=== PATIENT | male | born 1950 | race Caucasian/White ===

== ENCOUNTER 2017-09-25 15:53 | Emergency (ER) | payer MEDICARE ==
[~2017-09-25] VITALS: Ht 180.3 cm; Wt 105.0 kg
[~2017-09-25 15:53] MED LIST: CEPH500C5 PO; CYCL-1 PO; HYDR-569 PO
[2017-09-25 16:46] LABS: BASOPHILS % (AUTO) 0.2 % (0-1); EOSINOPHILS % (AUTO) 0 % (0-6); HEMATOCRIT 45.9 % (42.0-52.0); LYMPHOCYTES # (AUTO) 0.8 X10'3 (1.1-4.8); LYMPHOCYTES % (AUTO) 7.9 % (21-51); MEAN CORPUSCULAR HEMOGLOBIN 28.7 PG (27.0-31.0); MEAN CORPUSCULAR HGB CONC 34.8 % (33.0-36.5); MEAN CORPUSCULAR VOLUME 82.4 FL (78-98); MEAN PLATELET VOLUME 8.1 FL (7.4-10.4); MONOCYTES # (AUTO) 0.7 X10'3 (0-0.9); MONOCYTES % (AUTO) 7.2 % (2-12); NEUTROPHILS # (AUTO) 8.4 X10'3 (1.8-7.7); NEUTROPHILS % (AUTO) 84.7 % (42-75); PLATELET COUNT 205 X10'3 (140-440); RED BLOOD COUNT 5.57 X10'6 (4.70-6.10); RED CELL DISTRIBUTION WIDTH 14.5 % (11.5-14.5); WHITE BLOOD COUNT 9.9 X10'3 (4.5-11.0)
[2017-09-25 16:55] LABS: ALANINE AMINOTRANSFERASE 21 U/L (12-78); ALBUMIN 3.4 G/DL (3.4-5.0); ALBUMIN/GLOBULIN RATIO 0.8 (1.1-1.5); ALKALINE PHOSPHATASE 87 IU/L (46-116); ANION GAP 10 (8-16); ASPARTATE AMINO TRANSFERASE 16 U/L (10-37); BILIRUBIN,TOTAL 0.8 MG/DL (0.1-1.0); BLOOD UREA NITROGEN 13 MG/DL (7-18); CALCIUM 8.9 MG/DL (8.5-10.1); CHLORIDE 99 MMOL/L (99-107); GLUCOSE 111 MG/DL (70-104); LIPASE 74 U/L (73-393); POTASSIUM 3.1 MMOL/L (3.5-5.1); SODIUM 136 MMOL/L (135-145); TOTAL CARBON DIOXIDE 27.5 MMOL/L (24-32); TOTAL PROTEIN 7.8 G/DL (6.4-8.2); eGFR 75 ML/MIN
[2017-09-25] MEDS: acetaminophen 325mg tablet PO STA (18:11)
[2017-09-25] MEDS: potassium Cl oral solution 20 MEQ/15 ML PO ONE (18:12)
[2017-09-25] MEDS: ipratropium/albuterol 3ml nebule NEB ONE (18:38)
[2017-09-25] MEDS: normal saline 1000ML IV soln IV ONE (19:00)
[2017-09-25 19:02] VITALS: BP 102/58
[2017-09-25] MEDS ORDERED: TAM75C PO (19:36)
[2017-09-25] MEDS ORDERED: ONDA4TAB9 PO (19:36)
[2017-09-25] MEDS: ketorolac trometh. 30mg/ml inj. IV ONE (19:50)
[2017-09-26] MEDS ORDERED: TERA5CAP4 PO (15:00)
== END 2017-09-25 20:10 | disposition home or self-care (01) ==
LOC: ER 15:54
DX: J09.X2 Influenza due to identified novel influenza A virus with other respiratory manifestations (principal); Z87.891 Personal history of nicotine dependence
CPT/HCPCS: 36415; 71045; 80053; 83605; 83690; 85025; 87040; 87502; 87503; 93005; 94640; 94760; 99285; J7030

== ENCOUNTER 2017-09-26 14:50 | Emergency (ER) | payer MEDICARE ==
[~2017-09-26] VITALS: Ht 180.3 cm; Wt 105.1 kg
[~2017-09-26 14:50] MED LIST changes: +ONDA4TAB9 PO; +TAM75C PO
[2017-09-26] MEDS ORDERED: TERA5CAP4 PO (15:00)
[2017-09-26 15:35] VITALS: BP 140/84
== END 2017-09-26 15:07 | disposition home or self-care (01) ==
LOC: ER 14:50
DX: Z76.0 Encounter for issue of repeat prescription (principal); I10 Essential (primary) hypertension; N40.0 Benign prostatic hyperplasia without lower urinary tract symptoms
CPT/HCPCS: 99283

== ENCOUNTER 2017-10-10 15:34 | Emergency (ER) | payer MEDICARE ==
[~2017-10-10] VITALS: Ht 180.3 cm; Wt 108.0 kg
[~2017-10-10 15:34] MED LIST changes: -TAM75C PO; +TERA5CAP4 PO
[2017-10-10 15:41] VITALS: BP 125/83
[2017-10-10] MEDS ORDERED: TETanus/Pertussis (Acell)/Diphther VAC/PF (Tdap-Adult) 0.5ml syringe IMVAC ONE (15:50)
[2017-10-10] MEDS ORDERED: DOXY50CA2 PO (15:57)
== END 2017-10-10 16:18 | disposition home or self-care (01) ==
LOC: ER 15:35
DX: L03.011 Cellulitis of right finger (principal); I10 Essential (primary) hypertension; Z98.890 Other specified postprocedural states; Z79.899 Other long term (current) drug therapy
CPT/HCPCS: 90471; 90715; 99283

== ENCOUNTER 2018-01-28 13:22 | Emergency (ER) | payer MEDICARE ==
[~2018-01-28] VITALS: Ht 180.3 cm; Wt 108.0 kg
[~2018-01-28 13:22] MED LIST changes: +DOXY50CA2 PO; -ONDA4TAB9 PO
[2018-01-28] MEDS ORDERED: PROPARACAINE/FLUORESCEIN ophthalmic drops 5ml bottle RIGHTEYE ONE (14:20)
[2018-01-28] MEDS ORDERED: ampicillin/sulbac 3gm/NS 100ml 100 ML IV ONE (14:45)
[2018-01-28 14:56] LABS: BASOPHILS % (AUTO) 0.2 % (0-1); EOSINOPHILS # (AUTO) 0.2 X10'3 (0-0.9); EOSINOPHILS % (AUTO) 2.4 % (0-6); HEMATOCRIT 44.4 % (42.0-52.0); HEMOGLOBIN 15.4 g/dl (14.0-17.9); LYMPHOCYTES # (AUTO) 2.3 X10'3 (1.1-4.8); LYMPHOCYTES % (AUTO) 23.3 % (21-51); MEAN CORPUSCULAR HEMOGLOBIN 29.3 PG (27.0-31.0); MEAN CORPUSCULAR HGB CONC 34.6 % (33.0-36.5); MEAN CORPUSCULAR VOLUME 84.6 FL (78-98); MEAN PLATELET VOLUME 7.9 FL (7.4-10.4); MONOCYTES # (AUTO) 0.6 X10'3 (0-0.9); MONOCYTES % (AUTO) 6.6 % (2-12); NEUTROPHILS # (AUTO) 6.6 X10'3 (1.8-7.7); NEUTROPHILS % (AUTO) 67.5 % (42-75); PLATELET COUNT 185 X10'3 (140-440); RED BLOOD COUNT 5.25 X10'6 (4.70-6.10); RED CELL DISTRIBUTION WIDTH 13.9 % (11.5-14.5); WHITE BLOOD COUNT 9.7 X10'3 (4.5-11.0)
[2018-01-28 15:10] LABS: ALANINE AMINOTRANSFERASE 17 U/L (12-78); ALBUMIN 3.2 G/DL (3.4-5.0); ALBUMIN/GLOBULIN RATIO 0.9 (1.1-1.5); ALKALINE PHOSPHATASE 90 IU/L (46-116); ANION GAP 7 (8-16); ASPARTATE AMINO TRANSFERASE 11 U/L (10-37); BILIRUBIN,TOTAL 0.6 MG/DL (0.1-1.0); BLOOD UREA NITROGEN 19 MG/DL (7-18); BUN/CREATININE RATIO 22.1 (5.4-32.0); CALCIUM 8.5 MG/DL (8.5-10.1); CHLORIDE 104 MMOL/L (99-107); CREATININE 0.86 MG/DL (0.60-1.10); GLUCOSE 109 MG/DL (70-104); SODIUM 137 MMOL/L (135-145); TOTAL CARBON DIOXIDE 26.2 MMOL/L (24-32); TOTAL PROTEIN 6.9 G/DL (6.4-8.2); eGFR 89 ML/MIN
[2018-01-28] MEDS ORDERED: iohexol 300mg/ml 100ml inj. ONE (15:48)
[2018-01-28] MEDS ORDERED: acetaminophen 325mg tablet PO ONE (16:30)
[2018-01-28] MEDS ORDERED: SULF1TAB49 PO (16:44)
[2018-01-28] MEDS ORDERED: CEPH-572 PO (16:44)
[2018-01-28 17:07] VITALS: BP 133/79
== END 2018-01-28 17:09 | disposition home or self-care (01) ==
LOC: ER 13:23
DX: L03.213 Periorbital cellulitis (principal); I10 Essential (primary) hypertension; Z98.890 Other specified postprocedural states; Z90.49 Acquired absence of other specified parts of digestive tract; Z79.899 Other long term (current) drug therapy
CPT/HCPCS: 36415; 70487; 80053; 85025; 96365; 99285; J0295; J7030; Q9967

== ENCOUNTER 2018-05-16 13:21 | Emergency (ER) | payer MEDICARE ==
[~2018-05-16] VITALS: Ht 180.3 cm; Wt 86.0 kg
[~2018-05-16 13:21] MED LIST changes: -CEPH500C5 PO
[2018-05-16 13:31] VITALS: BP 145/96
[2018-05-16] MEDS ORDERED: AMOX-580 PO (14:17)
== END 2018-05-16 15:04 | disposition home or self-care (01) ==
LOC: ER 13:22
DX: J32.1 Chronic frontal sinusitis (principal); I10 Essential (primary) hypertension; Z90.49 Acquired absence of other specified parts of digestive tract; Z98.890 Other specified postprocedural states
CPT/HCPCS: 70220; 99284

== ENCOUNTER 2019-08-01 13:21 | Emergency (ER) | payer MEDICARE ==
[~2019-08-01] VITALS: Ht 180.3 cm; Wt 111.8 kg
[~2019-08-01 13:21] MED LIST changes: +HYDR-4383 PO; -HYDR-569 PO
[2019-08-01 13:29] VITALS: BP 167/101
[2019-08-01] MEDS ORDERED: HYDROcodone/acetaminophen 5mg/325mg tablet PO ONE (14:45)
[2019-08-01] MEDS ORDERED: CHLO473M3 PO (14:57)
[2019-08-01] MEDS ORDERED: L. R1CAP4 PO (14:57)
[2019-08-01] MEDS ORDERED: AMOX-580 PO (14:57)
== END 2019-08-01 15:13 | disposition home or self-care (01) ==
LOC: ER 13:21
DX: K02.9 Dental caries, unspecified (principal); I10 Essential (primary) hypertension; Z90.49 Acquired absence of other specified parts of digestive tract; Z98.890 Other specified postprocedural states; Z79.2 Long term (current) use of antibiotics; Z79.4 Long term (current) use of insulin; Z79.899 Other long term (current) drug therapy
CPT/HCPCS: 99283

== ENCOUNTER 2020-02-15 16:10 | Emergency (ER) | payer BC, MEDICARE ==
[~2020-02-15] VITALS: Ht 154.9 cm; Wt 110.8 kg
[~2020-02-15 16:10] MED LIST changes: +CHLO473M3 PO; +L. R1CAP4 PO
[2020-02-15] MEDS ORDERED: piperacillin/tazo 3.375gm/50ml 50 ML IV ONE (17:35)
[2020-02-15 18:09] LABS: BASOPHILS # (AUTO) 0.1 X10'3 (0-0.2); BASOPHILS % (AUTO) 1.4 % (0-1); EOSINOPHILS # (AUTO) 0.1 X10'3 (0-0.9); EOSINOPHILS % (AUTO) 0.6 % (0-6); LYMPHOCYTES # (AUTO) 1.8 X10'3 (1.1-4.8); LYMPHOCYTES % (AUTO) 17.8 % (21-51); MEAN CORPUSCULAR HEMOGLOBIN 28.9 PG (27.0-31.0); MEAN CORPUSCULAR HGB CONC 33.4 g/dL (33.0-36.5); MEAN CORPUSCULAR VOLUME 86.6 FL (78-98); MEAN PLATELET VOLUME 8.1 FL (7.4-10.4); MONOCYTES # (AUTO) 0.9 X10'3 (0-0.9); MONOCYTES % (AUTO) 8.9 % (2-12); NEUTROPHILS # (AUTO) 7.4 X10'3 (1.8-7.7); NEUTROPHILS % (AUTO) 71.3 % (42-75); PLATELET COUNT 232 X10'3 (140-440); RED BLOOD COUNT 5.19 X10'6 (4.70-6.10); RED CELL DISTRIBUTION WIDTH 13.8 % (11.5-14.5); WHITE BLOOD COUNT 10.3 X10'3 (4.5-11.0)
[2020-02-15 18:20] LABS: ALANINE AMINOTRANSFERASE 20 U/L (12-78); ALBUMIN 3.2 G/DL (3.4-5.0); ALBUMIN/GLOBULIN RATIO 0.8 (1.1-1.5); ALKALINE PHOSPHATASE 81 IU/L (46-116); ANION GAP 7 (8-16); ASPARTATE AMINO TRANSFERASE 7 U/L (10-37); BILIRUBIN,TOTAL 0.8 MG/DL (0.1-1.0); BLOOD UREA NITROGEN 19 MG/DL (7-18); BUN/CREATININE RATIO 22.1 (5.4-32.0); CALCIUM 8.9 MG/DL (8.5-10.1); CHLORIDE 105 MMOL/L (99-107); CREATININE 0.86 MG/DL (0.60-1.10); GLUCOSE 81 MG/DL (70-104); POTASSIUM 3.8 MMOL/L (3.5-5.1); SODIUM 140 MMOL/L (135-145); TOTAL CARBON DIOXIDE 27.6 MMOL/L (24-32); TOTAL PROTEIN 7.1 G/DL (6.4-8.2); eGFR 88 ML/MIN
[2020-02-15] MEDS ORDERED: BACDS PO (18:49)
[2020-02-15] MEDS ORDERED: AMOX-422 PO (18:49)
[2020-02-15 18:58] LABS: CLARITY,URINE CLEAR (Clear); COLOR,URINE YELLOW (Yellow); GLUCOSE, URINE NEGATIVE (Neg); KETONES,URINE NEGATIVE (Neg); LEUKOCYTE ESTERASE ,URINE NEGATIVE (Neg); NITRITES, URINE NEGATIVE (Neg); OCCULT BLOOD,URINE NEGATIVE (Neg); PROTEIN,URINE NEGATIVE (Neg)
[2020-02-15 19:01] LABS: UA COLLECTION TYPE CLN CATCH MIDSTREAM
[2020-02-15 19:19] VITALS: BP 129/87
== END 2020-02-15 19:20 | disposition home or self-care (01) ==
LOC: ER 16:11
DX: L97.929 Non-pressure chronic ulcer of unspecified part of left lower leg with unspecified severity (principal); L03.116 Cellulitis of left lower limb; I10 Essential (primary) hypertension; Z90.49 Acquired absence of other specified parts of digestive tract; Z98.890 Other specified postprocedural states; Z72.89 Other problems related to lifestyle; Z79.899 Other long term (current) drug therapy
CPT/HCPCS: 80053; 81003; 85025; 96365; 99284; J2543

== ENCOUNTER 2021-10-13 22:21 | Emergency (ER) | payer BC ==
[~2021-10-13] VITALS: Ht 180.3 cm; Wt 113.6 kg
[2021-10-13 22:59] VITALS: BP 121/81
[2021-10-13] MEDS ORDERED: ALBU6.7H9 INH (23:17)
[2021-10-13] MEDS ORDERED: LEVO500T90 PO (23:17)
[2021-10-13] MEDS ORDERED: PRED20TA PO (23:17)
[2021-10-13] MEDS ORDERED: FLUT16SP2 BOTHNARES (23:17)
== END 2021-10-14 00:13 | disposition home or self-care (01) ==
LOC: ER 22:22
DX: J32.0 Chronic maxillary sinusitis (principal); Z20.822 Contact with and (suspected) exposure to COVID-19; R50.9 Fever, unspecified; R05.9 Cough, unspecified; R09.89 Other specified symptoms and signs involving the circulatory and respiratory systems; R53.83 Other fatigue; I10 Essential (primary) hypertension; F17.200 Nicotine dependence, unspecified, uncomplicated; Z90.89 Acquired absence of other organs; Z98.890 Other specified postprocedural states; Z72.89 Other problems related to lifestyle; Z79.2 Long term (current) use of antibiotics; Z79.899 Other long term (current) drug therapy
CPT/HCPCS: 87635; 99283; C9803

== ENCOUNTER 2024-08-06 14:41 | Emergency (ER) | payer BC ==
[~2024-08-06] VITALS: Ht 180.3 cm; Wt 113.6 kg
[~2024-08-06 14:41] MED LIST changes: +ALBU6.7H14 INH; +CHLO473M13 PO; -CHLO473M3 PO; +FLUT16SP2 BOTHNARES
[2024-08-06 16:08] VITALS: TEMP 97.8
[2024-08-06 16:43] VITALS: BP 158/113; PULSE 95; RESP 16; O2SAT 98
[2024-08-06] MEDS: proparacaine 0.5% ophthalmic drops 15ml EACHEYE ONE (16:49)
[2024-08-06] MEDS ORDERED: OFLO5DRO LEFTEYE (16:56)
[2024-08-06] MEDS ORDERED: KETO5DRO LEFTEYE (16:56)
== END 2024-08-06 17:11 | disposition home or self-care (01) ==
LOC: ER 14:41
DX: S05.02XA Injury of conjunctiva and corneal abrasion without foreign body, left eye, initial encounter (principal); I10 Essential (primary) hypertension; Z79.52 Long term (current) use of systemic steroids; Z79.899 Other long term (current) drug therapy; Z90.49 Acquired absence of other specified parts of digestive tract; Z98.890 Other specified postprocedural states; Z72.89 Other problems related to lifestyle; W60.XXXA Contact with nonvenomous plant thorns and spines and sharp leaves, initial encounter; Y93.89 Activity, other specified; Y92.007 Garden or yard of unspecified non-institutional (private) residence as the place of occurrence of the external cause; Y99.8 Other external cause status
CPT/HCPCS: 99283

== ENCOUNTER 2024-08-14 12:38 | Inpatient (IN) | payer BC ==
[~2024-08-14] VITALS: Ht 180.3 cm; Wt 150.6 kg
[~2024-08-14 12:38] MED LIST changes: +KETO5DRO LEFTEYE; +OFLO5DRO LEFTEYE
[2024-08-14 15:17] LABS: BILIRUBIN,URINE NEGATIVE (Neg); CLARITY,URINE CLEAR (Clear); COLOR,URINE YELLOW (Yellow); GLUCOSE, URINE NEGATIVE (Neg); KETONES,URINE NEGATIVE (Neg); LEUKOCYTE ESTERASE ,URINE NEGATIVE (Neg); NITRITES, URINE NEGATIVE (Neg); OCCULT BLOOD,URINE NEGATIVE (Neg); PH,URINE 5.5 (4.8-8.0); PROTEIN,URINE NEGATIVE (Neg); UROBILINOGEN,URINE 0.2 E.U/dL (0.2-1.0)
[2024-08-14 15:29] LABS: UA COLLECTION TYPE NON-SPECIFIED
[2024-08-14] MEDS: CefTRIAXone 2gm/D5W 50ml BAG 50 ML IV ONE (15:33)
[2024-08-14] MEDS: azithromycin/NS 500mg/250ml 250 ML IV ONE (15:35)
[2024-08-14 15:37] LABS: BASOPHILS % (AUTO) 0.1 % (0-1); EOSINOPHILS % (AUTO) 0.1 % (0-6); HEMATOCRIT 42.3 % (42.0-52.0); HEMOGLOBIN 14.4 g/dl (14.0-17.9); LYMPHOCYTES % (AUTO) 5.8 % (21-51); MEAN CORPUSCULAR HEMOGLOBIN 29.4 PG (27.0-31.0); MEAN CORPUSCULAR HGB CONC 34.1 g/dL (33.0-36.5); MEAN PLATELET VOLUME 8.1 FL (7.4-10.4); MONOCYTES # (AUTO) 1.4 X10'3 (0-0.9); MONOCYTES % (AUTO) 7.6 % (2-12); NEUTROPHILS # (AUTO) 15.4 X10'3 (1.8-7.7); NEUTROPHILS % (AUTO) 86.4 % (42-75); PLATELET COUNT 195 X10'3 (140-440); RED BLOOD COUNT 4.92 X10'6 (4.70-6.10); RED CELL DISTRIBUTION WIDTH 15.1 % (11.5-14.5); WHITE BLOOD COUNT 17.8 X10'3 (4.5-11.0)
[2024-08-14] MEDS ORDERED: ALBUTEROL (15:38)
[2024-08-14] MEDS ORDERED: OFLO5DRO6 (15:38)
[2024-08-14] MEDS ORDERED: CITA20TA28 PO (15:40)
[2024-08-14] MEDS ORDERED: KETO5DRO40 EACHEYE (15:40)
[2024-08-14] MEDS ORDERED: LOSA50TA64 PO (15:40)
[2024-08-14] MEDS ORDERED: FLO0.4C (15:40)
[2024-08-14 16:02] LABS: ALANINE AMINOTRANSFERASE 12 U/L (12-78); ALBUMIN 2.7 G/DL (3.4-5.0); ALBUMIN/GLOBULIN RATIO 0.6 (1.1-1.5); ALKALINE PHOSPHATASE 77 IU/L (46-116); ANION GAP 7 (8-16); ASPARTATE AMINO TRANSFERASE 8 U/L (10-37); BILIRUBIN,TOTAL 1.1 MG/DL (0.1-1.0); BLOOD UREA NITROGEN 39 MG/DL (7-18); BUN/CREATININE RATIO 27.3 (10.0-20.0); CALCIUM 8.7 MG/DL (8.5-10.1); CHLORIDE 97 MMOL/L (99-107); CREATININE 1.43 MG/DL (0.60-1.10); GLUCOSE 149 MG/DL (70-104); MAGNESIUM 2.1 MG/DL (1.5-2.4); POTASSIUM 4.1 MMOL/L (3.5-5.1); SODIUM 134 MMOL/L (135-145); TOTAL CARBON DIOXIDE 30.5 MMOL/L (24-32); TOTAL PROTEIN 7.5 G/DL (6.4-8.2); eCRCL 50 ML/MIN; eGFR 49 ML/MIN
[2024-08-14] MEDS: ipratropium/albuterol 3ml nebule NEB ONE (16:31)
[2024-08-14 16:32] VITALS: PULSE 78; PULSE 79; RESP 16; RESP 20; O2SAT 92; O2SAT 93
[2024-08-14] MEDS ORDERED: dextrose 5%-1/2 normal saline 1,000 ML IV SCH (17:25)
[2024-08-14] MEDS ORDERED: acetaminophen 325mg tablet PO PRN (17:25)
[2024-08-14] MEDS ORDERED: magnesium hydroxide 30ml (MOM) UD suspension PO PRN (17:25)
[2024-08-14] MEDS ORDERED: mag hydrox/Alum hydrox/simeth 30ml oral suspension PO PRN (17:25)
[2024-08-14] MEDS: docusate sod 100mg capsule PO SCH (20:00)
[2024-08-14 20:20] LABS: PRO BRAIN NATRIURETIC PEPTIDE 60 PG/ML (0-125)
[2024-08-14] MEDS: normal saline 1000ml 1,000 ML IV SCH (20:54)
[2024-08-14] MEDS: ondansetron/PF 4mg/2ml inj IV PRN (20:58)
[2024-08-14] MEDS: morphine 2 MG/ML inj. syringe IV PRN (20:58)
[2024-08-14] MEDS: normal saline 1000ml 1,000 ML IV ONE (22:16)
[2024-08-14 22:35] VITALS: BP 111/76; PULSE 103; RESP 16; TEMP 97.9; O2SAT 91
[2024-08-15] VITALS (7 sets, daily range): BP systolic 101–135; BP diastolic 53–79; PULSE 59–71; RESP 16–21; TEMP 97–98; O2SAT 91–95
[2024-08-15] MEDS: morphine 2 MG/ML inj. syringe IV PRN (00:42)
[2024-08-15 04:52] LABS: BASOPHILS % (AUTO) 0.1 % (0-1); EOSINOPHILS # (AUTO) 0.1 X10'3 (0-0.9); EOSINOPHILS % (AUTO) 0.7 % (0-6); HEMATOCRIT 36.2 % (42.0-52.0); HEMOGLOBIN 12.3 g/dl (14.0-17.9); LYMPHOCYTES # (AUTO) 1.4 X10'3 (1.1-4.8); MEAN CORPUSCULAR HEMOGLOBIN 29.1 PG (27.0-31.0); MEAN CORPUSCULAR VOLUME 85.6 FL (78-98); MEAN PLATELET VOLUME 7.9 FL (7.4-10.4); MONOCYTES % (AUTO) 8.8 % (2-12); NEUTROPHILS # (AUTO) 9.3 X10'3 (1.8-7.7); NEUTROPHILS % (AUTO) 78.4 % (42-75); PLATELET COUNT 183 X10'3 (140-440); RED BLOOD COUNT 4.23 X10'6 (4.70-6.10); RED CELL DISTRIBUTION WIDTH 14.6 % (11.5-14.5); WHITE BLOOD COUNT 11.8 X10'3 (4.5-11.0)
[2024-08-15 05:03] LABS: ALBUMIN 2.1 G/DL (3.4-5.0); ANION GAP 4 (8-16); BLOOD UREA NITROGEN 26 MG/DL (7-18); BUN/CREATININE RATIO 24.8 (10.0-20.0); CHLORIDE 104 MMOL/L (99-107); CREATININE 1.05 MG/DL (0.60-1.10); GLUCOSE 153 MG/DL (70-104); POTASSIUM 3.9 MMOL/L (3.5-5.1); SODIUM 138 MMOL/L (135-145); eCRCL 68 ML/MIN; eGFR 69 ML/MIN
[2024-08-15] MEDS: losartan 50mg tablet PO SCH (08:56)
[2024-08-15] MEDS: citalopram 20mg tablet PO SCH (08:56)
[2024-08-15] MEDS: enoxaparin 40mg/0.4ml syringe SUBCUT SCH (08:56)
[2024-08-15] MEDS: CefTRIAXone/D5W-Rocephin 1gm 50 ML IV SCH (08:57)
[2024-08-15] MEDS: azithromycin/NS 500mg/250ml 250 ML IV SCH (08:57)
[2024-08-15] MEDS: acetaminophen 325mg tablet PO PRN (09:08)
[2024-08-15] MEDS ORDERED: iohexol 300mg/ml 100ml inj. ONE (11:44)
[2024-08-15] MEDS: HYDROcodone/acetaminophen 5mg/325mg tablet PO PRN (20:13)
[2024-08-16] VITALS (9 sets, daily range): BP systolic 113–139; BP diastolic 57–82; PULSE 66–88; RESP 14–20; TEMP 97.1–98.2; O2SAT 92–97
[2024-08-16 06:14] LABS: BASOPHILS % (AUTO) 0.2 % (0-1); EOSINOPHILS # (AUTO) 0.1 X10'3 (0-0.9); EOSINOPHILS % (AUTO) 1.3 % (0-6); HEMATOCRIT 39.7 % (42.0-52.0); HEMOGLOBIN 13.5 g/dl (14.0-17.9); LYMPHOCYTES # (AUTO) 1.2 X10'3 (1.1-4.8); LYMPHOCYTES % (AUTO) 13.8 % (21-51); MEAN CORPUSCULAR HEMOGLOBIN 29.3 PG (27.0-31.0); MEAN CORPUSCULAR HGB CONC 33.9 g/dL (33.0-36.5); MEAN CORPUSCULAR VOLUME 86.4 FL (78-98); MEAN PLATELET VOLUME 8.2 FL (7.4-10.4); MONOCYTES # (AUTO) 0.8 X10'3 (0-0.9); MONOCYTES % (AUTO) 9.6 % (2-12); NEUTROPHILS # (AUTO) 6.6 X10'3 (1.8-7.7); NEUTROPHILS % (AUTO) 75.1 % (42-75); PLATELET COUNT 224 X10'3 (140-440); RED BLOOD COUNT 4.59 X10'6 (4.70-6.10); RED CELL DISTRIBUTION WIDTH 14.7 % (11.5-14.5); WHITE BLOOD COUNT 8.8 X10'3 (4.5-11.0)
[2024-08-16 06:20] LABS: ALBUMIN 2.1 G/DL (3.4-5.0); ANION GAP 6 (8-16); BLOOD UREA NITROGEN 17 MG/DL (7-18); BUN/CREATININE RATIO 24.6 (10.0-20.0); CALCIUM 8.8 MG/DL (8.5-10.1); CHLORIDE 104 MMOL/L (99-107); CREATININE 0.69 MG/DL (0.60-1.10); GLUCOSE 119 MG/DL (70-104); POTASSIUM 3.9 MMOL/L (3.5-5.1); SODIUM 139 MMOL/L (135-145); TOTAL CARBON DIOXIDE 29.5 MMOL/L (24-32); eCRCL 103 ML/MIN; eGFR > 90 ML/MIN
[2024-08-16] MEDS ORDERED: albuterol 2.5 MG/3 ML nebule NEB PRN (08:45)
[2024-08-16] MEDS ORDERED: normal saline 500ml IV soln 500 ML IV PRN (15:40)
[2024-08-17 02:00] VITALS: BP 142/65; PULSE 61; RESP 12; TEMP 98.2; O2SAT 96
[2024-08-17 06:57] LABS: BASOPHILS % (AUTO) 0.3 % (0-1); EOSINOPHILS # (AUTO) 0.1 X10'3 (0-0.9); EOSINOPHILS % (AUTO) 1.6 % (0-6); HEMATOCRIT 39.2 % (42.0-52.0); HEMOGLOBIN 13.2 g/dl (14.0-17.9); LYMPHOCYTES # (AUTO) 1.6 X10'3 (1.1-4.8); LYMPHOCYTES % (AUTO) 18.2 % (21-51); MEAN CORPUSCULAR HEMOGLOBIN 28.9 PG (27.0-31.0); MEAN CORPUSCULAR HGB CONC 33.6 g/dL (33.0-36.5); MEAN CORPUSCULAR VOLUME 86.1 FL (78-98); MEAN PLATELET VOLUME 7.9 FL (7.4-10.4); MONOCYTES % (AUTO) 11.7 % (2-12); NEUTROPHILS # (AUTO) 5.9 X10'3 (1.8-7.7); NEUTROPHILS % (AUTO) 68.2 % (42-75); PLATELET COUNT 259 X10'3 (140-440); RED BLOOD COUNT 4.56 X10'6 (4.70-6.10); RED CELL DISTRIBUTION WIDTH 14.9 % (11.5-14.5); WHITE BLOOD COUNT 8.7 X10'3 (4.5-11.0)
[2024-08-17 07:00] VITALS: BP 104/68; PULSE 63; RESP 16; TEMP 97.9; O2SAT 96
[2024-08-17] MEDS ORDERED: LEVO-65 PO (07:31)
[2024-08-17 07:44] LABS: ANION GAP 4 (8-16); BLOOD UREA NITROGEN 12 MG/DL (7-18); BUN/CREATININE RATIO 14.8 (10.0-20.0); CALCIUM 8.6 MG/DL (8.5-10.1); CHLORIDE 106 MMOL/L (99-107); CREATININE 0.81 MG/DL (0.60-1.10); GLUCOSE 128 MG/DL (70-104); POTASSIUM 4.1 MMOL/L (3.5-5.1); SODIUM 140 MMOL/L (135-145); TOTAL CARBON DIOXIDE 30.2 MMOL/L (24-32); eCRCL 88 ML/MIN; eGFR > 90 ML/MIN
[2024-08-17 08:50] VITALS: PULSE 72; RESP 18; O2SAT 98
[2024-08-17] MEDS: azithromycin 250mg tablet PO SCH (09:03)
[2024-08-17 11:00] VITALS: BP 125/67; PULSE 70; RESP 20; TEMP 97.6; O2SAT 94
== END 2024-08-17 14:45 | disposition home or self-care (01) | DRG 871 ==
LOC: ER 12:38 → ED HOLD 17:29 → PCU 3S 22:37
PROVIDERS: ADMIT Internal Medicine; ATTEND Internal Medicine
PROC: BW211ZZ Computerized Tomography (CT Scan) of Abdomen and Pelvis using Low Osmolar Contrast (ICD-10-PCS; principal; 2024-08-15)
DX: A41.9 Sepsis, unspecified organism (principal); J15.9 Unspecified bacterial pneumonia; J96.01 Acute respiratory failure with hypoxia; N17.9 Acute kidney failure, unspecified; I10 Essential (primary) hypertension; Z20.822 Contact with and (suspected) exposure to COVID-19; Z96.653 Presence of artificial knee joint, bilateral; F32.A Depression, unspecified; K76.89 Other specified diseases of liver; K40.20 Bilateral inguinal hernia, without obstruction or gangrene, not specified as recurrent; N40.0 Benign prostatic hyperplasia without lower urinary tract symptoms; Z90.49 Acquired absence of other specified parts of digestive tract
CPT/HCPCS: 36415; 71045; 71250; 74177; 80048; 80053; 81003; 83605; 83735; 83880; 84145; 84484; 85025; 87040; 87081; 87502; 87503; 87811; 93005; 94760; 96365; 96367; 97116; 97161; 97530; 99291; G0378; J0456; J0696; J1650; J2270; J2405; J7030; J7040; Q9967

== ENCOUNTER 2025-03-28 13:43 | Emergency (ER) | payer BC ==
[~2025-03-28] VITALS: Ht 180.3 cm; Wt 116.4 kg
[~2025-03-28 13:43] MED LIST changes: -ALBU6.7H14 INH; +ALBUTEROL; -CHLO473M13 PO; +CITA-178 PO; -CYCL-1 PO; -DOXY50CA2 PO; -FLUT16SP2 BOTHNARES; -HYDR-4383 PO; -KETO5DRO LEFTEYE; -L. R1CAP4 PO; +LOSA50TA64 PO; -OFLO5DRO LEFTEYE; +OFLO5DRO6; +TAMS-55; -TERA5CAP4 PO; +[UNRECOGNIZED DRUG - CODE] EACHEYE
[2025-03-28 13:45] VITALS: TEMP 98.9
--- NOTE | 2025-03-28 16:42 | Physician Documentation ---
History of Present Illness ~ Chief Complaint: Ear Pain Stated Complaint: R EAR PAIN Time Seen by MD: 16:16 OK to notify your PCP?: Yes Primary Medical Doctor: Reji SY Source: patient Mode of Arrival: POV Exam Limitations: no limitations HPI 74-year-old male presents for right ear pain past couple of days. He states that he was able to express some fluid outside of the right side of his ear with some pressure. He has not taken any medications for his symptoms prior. Medication Reconciliation Allergies: Coded Allergies: No Known Allergies (Unverified , 03/28/25) Scheduled Citalopram Hydrobromide* (Celexa*), 1 TAB PO DAILY, (Reported) Losartan Potassium (Losartan Potassium), 1 TAB PO DAILY, (Reported) Miscellaneous Medications Ketorolac Tromethamine (Ketorolac Tromethamine), EACHEYE, (Reported) Ofloxacin OPHTHALMIC drops (Ofloxacin OPHTHALMIC DROPS), (Reported) Tamsulosin Hcl* (Flomax*), (Reported) [Albuterol], (Reported) Past Medical History Past Medical History: Hypertension, BPH Past Surgical History: appendectomy, orthopedic surgeries Other Past Surgical History: retinal surgery, cataract surgery Alcohol Use: Occasionally Drug Use: none Lives In: Home Occupation: retired Review of Systems All Other Systems at this time: Reviewed and Negative Physical Exam Vital Signs: RN Vital Signs have been reviewed: Yes, Temperature: 98.9, Source: Oral, Heart Rate: 89, Respiratory Rate: 18, BP: 155/84, Pulse Oximetry: 99, [place] ght: 116.360 Pulse Oximetry Reflects: adequate oxygenation Physical Exam General: Alert, no distress. HEENT: No injection, moist mucous membranes. Mastoid bone nontender. Bilateral TMs clear. Small abscess to tip of right tragus. Neck: Full range of motion. No cervical lymphadenopathy. Respiratory: No respiratory distress, equal chest rise and fall. Chest: No accessory muscle use. Cardiovascular: Regular rate and rhythm. Gastrointestinal: Nondistended. Extremities: Normal range of motion, no deformity. Neurologic: Oriented x4. Psychiatric: Normal mood and affect. Skin: Normal color, warm and dry. Procedures I&D Procedure : Site: Right tragus Anesthesia: Lidocaine Volume Anesthetic (mls): 1 Blade Size: 11 Prep/Supplies: betadine prep Incision: pus drained, blood drained Tolerated Procedure Well?: yes, no complications Progress Results/Orders Results/Orders Orders - KAROL ZELAYA Laceration/I&D Tray Set Up (03/28/25 ) Completed Orders - KAROL ZELAYA OPERATING ENGINEER Cephalexin Capsule (Keflex Capsule) (03/28/25 16:35) Medications Received in ER Medications (Trade) Dose Ordered Sig/Rosa Route PRN Reason Start Time Stop Time Status Last Admin Dose Admin (Keflex capsule) 500 mg ONCE ONCE PO 03/28/25 16:35 03/28/25 16:36 DC 03/28/25 16:57 500 MG Vital Signs 03/28/25 13:45 Temp 98.9 Pulse 89 Resp 18 B/P (MAP) 155/84 Pulse Ox 99 Medical Decision Making Additional info obtained from: old records Findings 74-year-old male presents for abscess to his right tragus. He tried draining it earlier today and did get some yellow fluid out. He has not taken any medications or antibiotics yet for his abscess. He denies having a history of any MRSA. Performed I and D and got some blood and purulent drainage out from the site. I prescribed Keflex with the 1st dose given here in the department. He was educated to follow up his primary care provider within the next 3 days and return back here for any new or worsening symptoms. He was requesting some medication for the pain so I prescribed a 2 day supply of [place] sent to his pharmacy. Ear Diff. Dx: Considerations: Include: Cerumen impaction, Otitis externa, Barotrauma, Otitis media, Perforation Departure Disposition: 01 HOME / SELF CARE / HOMELESS Impression: Primary Impression: Abscess of tragus of right ear Condition: Stable Discharge Instructions: Abscess, Care After Additional Instructions: Please take Tylenol or ibuprofen for pain relief and if that isn't working you have been prescribed some [place] that you can take as needed for the pain. Please do not drive on this medication. Please take care not to exceed 4000 mg of Tylenol within a 24 hour period. Follow up with her primary care provider within the next 3 days and return back here for any new or worsening symptoms. Please take all antibiotics as prescribed and finish the course even if you are feeling better. Referrals: NO PRIMARY CARE PROVIDER (PCP) Prescriptions Cephalexin*Monohydrate* (Keflex*) 500 Mg Capsule 1 CAP PO Q8H for 10 Days, #30 CAP Prov: KAROL ZELAYAP 03/28/25 Hydrocodone Bit/Acetaminophen 5/325 MG ([place] 5/325 MG) 5 Mg/325 Mg Tablet 1 TAB PO Q12H PRN PRN for pain for 2 Days, #4 TAB Prov: KAROL ZELAYA 03/28/25 Education Educated: Patient Educated regarding: diagnosis, treatment, prognosis, need for follow up Additional Comment Medical Screen Exam This patient recieved a medical screening examination. After reviewing the in dividual's medical complaints with presenting symptoms and performing an appropriate physical examination, it was determined that no immediate life- threatening emergency medical condition is present. This individual is also not a women having contractions. Signature Scribe Signature: . Attestation: Scribed for Karol Zelaya by Karol Schmitt NP . 03/28/25 17:27 Parts of this note were created using [employer] voice recognition software program. While efforts were made to correct any mistakes made by this voice recognition software program, nonsensical phrases may remain in this note. In addition, there may be errors and syntax, grammar, content and spelling. KAROL ZELAYA Mar 28, 2025 16:42
[2025-03-28 16:46] VITALS: BP 124/80; PULSE 79; RESP 16; O2SAT 98
[2025-03-28] MEDS ORDERED: CEPH-585 PO (17:25)
[2025-03-28] MEDS ORDERED: HYDR-3965 PO (17:25)
== END 2025-03-28 17:36 | disposition home or self-care (01) ==
LOC: ER 13:44
DX: H60.01 Abscess of right external ear (principal); I10 Essential (primary) hypertension; N40.0 Benign prostatic hyperplasia without lower urinary tract symptoms; Z90.49 Acquired absence of other specified parts of digestive tract
CPT/HCPCS: 10060; 99283; A6449